=== PATIENT | female | born 1955 | race Caucasian/White ===

== ENCOUNTER 2021-06-08 18:52 | Emergency (ER) | payer MEDICARE, MEDICAID ==
[~2021-06-08] VITALS: Ht 149.9 cm; Wt 61.0 kg
[2021-06-08] MEDS ORDERED: ATEN-42 MT (19:29)
[2021-06-08 19:48] VITALS: BP 136/69
== END 2021-06-08 19:48 | disposition home or self-care (01) ==
LOC: ER 18:52
DX: Z76.0 Encounter for issue of repeat prescription (principal); I25.2 Old myocardial infarction; I10 Essential (primary) hypertension; Z88.0 Allergy status to penicillin; Z98.890 Other specified postprocedural states
CPT/HCPCS: 99281; 99283